=== PATIENT | male | born 1995 ===

== ENCOUNTER 2017-08-01 13:10 | Day surgery (SDC) | payer BC ==
[2017-07-27 08:34] VITALS: BMI 19.5
[2017-08-01] MEDS ORDERED: Midazolam 2 MG/2 ML VIAL ONE (15:38)
[2017-08-01] MEDS ORDERED: Propofol 10 mg/ml Inj (20 ML) ONE ×2 (15:38→16:13)
[2017-08-01] MEDS ORDERED: Bupivacaine 0.5% Inj(30mL) IJ ONE ×2 (16:14)
[2017-08-01] MEDS ORDERED: Bupivacaine 0.5% Inj(30mL) ONE (16:14)
[2017-08-01] MEDS ORDERED: Bacitracin 500 Units/gm Oint Foilpak UD ONE (16:23)
[2017-08-01] MEDS ORDERED: Oxycodone/Acetaminophen 5/325 mg Tab PO PRN (16:41)
[2017-08-01] MEDS ORDERED: ceFAZolin 1 gm in NS 1 GM/100 ML BAG IVPB STA (16:42)
[2017-08-01] MEDS ORDERED: CeFAZolin 1 gm in NS 100ml IVPB ONE (16:55)
[2017-08-01 16:59] VITALS: O2SAT 100
[2017-08-01 17:35] VITALS: RESP 20; TEMP 97.4
[2017-08-01 18:01] VITALS: BP 123/63; PULSE 50
--- NOTE | 2017-08-11 14:18 | PN ---
DATE: 08/01/17 IMMEDIATE POSTOPERATIVE NOTE . Please see the procedure note. The patient is status post frenulectomy and status post removal of the sutures. He is doing well. Vital signs are noted. Discharge instructions are given. Patient is in recovery room in stable condition. The plan is for outpatient management and followup. Antonio Dietrich MD
--- NOTE | 2017-08-12 07:25 | OP ---
PROCEDURE DATE: 08/01/2017 UROLOGY OPERATIVE REPORT PREOPERATIVE DIAGNOSIS: Penile skin band postoperative frenulectomy. PROCEDURE: Examination under anesthesia and removal of suture material. COMPLICATIONS: None. ESTIMATED BLOOD LOSS: Less than 10 mL. FINDINGS: We were able to remove all the sutures. INDICATIONS: See the history and physical for further detail. A very pleasant gentleman, 22 years old, here now for the above procedure. DESCRIPTION OF PROCEDURE: After obtaining informed consent, the patient was placed on the table. Routine monitors were placed. Time-outs were called. Patient was prepped in a sterile fashion. We arranged and we have sharp scissors. We have a suture removal kit. Under sterile technique, carefully and gently as possible, we removed all the sutures. We examined very closely and inspected very carefully. We applied dry sterile dressing. Patient tolerated it well without complications. Antonio Dietrich MD
--- NOTE | 2017-08-12 08:03 | HP ---
UROLOGY ADMISSION REASON FOR ADMISSION: Removal of suture. HISTORY OF PRESENT ILLNESS: Very pleasant gentleman who is 22 years old who initially had a tremendous skin band on his penis. We removed the skin band. See the previously dictated operative note. This was actually done at [facility]. Today, we are bringing him back to remove the sutures. He was not tolerating the removal in the office well. So I brought him into the hospital with a little sedation and anesthesia. PAST MEDICAL AND SURGICAL HISTORY: As listed. REVIEW OF SYSTEMS: Listed on the chart. None of that changed. This is a healthy 22-year-old male. PHYSICAL EXAMINATION: GENERAL: Well-nourished male, in no apparent distress. VITAL SIGNS: Within normal limits. LUNGS: Clear. ABDOMEN: Overall soft. Nontender. No real flank masses appreciated. GENITOURINARY: Normal phallus without discharge. The skin is , but the band looks like it is broken. This is a good news. The remainder of the physical exam is probably unremarkable. DIAGNOSIS: Penile skin band. The patient is status post a frenulectomy. This was done in another hospital. He is here now to remove the sutures. We again deliberately used a nonabsorbable monofilament tiny suture for less reaction, less scarring, and better healing process. We tried to remove in the office, but it was difficult. I explained to him the risks, benefits, and treatment alternatives. We will bring him to the hospital now. Antonio Dietrich MD
== END 2017-08-01 18:45 | disposition home or self-care (01) ==
LOC: SDS 13:10 → MERGE 15:30 → SDS 18:45
PROVIDERS: ATTEND Urology
DX: Z48.02 Encounter for removal of sutures (principal)
CPT/HCPCS: 15850; 88304; J0690; J1885; J2250; J2704; J3010; J7120